=== PATIENT | male | born 1965 | race Caucasian/White ===

== ENCOUNTER 2017-05-26 06:25 | Day surgery (SDC) | payer OTHER ==
[~2017-05-26] VITALS: Ht 172.7 cm; Wt 131.5 kg
[~2017-05-26 06:25] MED LIST: ASPIR-LOW81 MG PO; CALCIUM-MAGNES1 EA10 PO; CALCIUM/MAGN1 TABLE2 PO; CYCLOBENZAPRINE10 MG PO; GLUCOPHAGE XR,500 MG PO; HYDROCODON-ACE1 EAC8 PO; MEN'S MULTI-VI1 EACH PO; MOBIC15 MG PO; OMEPRAZOLE40 M1 PO; TOPROL XL25 MG PO; ZESTRIL20 MG PO
[2017-05-26 06:45] VITALS: BP 139/79
[2017-05-26 07:53] LABS: POINT-OF-CARE METER ID UU14174212
[2017-05-26 12:24] LABS: POINT-OF-CARE METER ID UU13113675
[2017-05-26 14:18] LABS: POINT-OF-CARE METER ID UU13113675
[2017-05-26 16:39] VITALS: BP 138/83
[2017-05-26 17:09] LABS: POINT-OF-CARE METER ID UU14208753
[2017-05-26 19:57] VITALS: BP 115/63
[2017-05-26 21:24] LABS: POINT-OF-CARE METER ID UU14117124
[2017-05-26 23:09] VITALS: BP 111/67
[2017-05-27 04:54] VITALS: BP 115/67
[2017-05-27 06:32] LABS: POINT-OF-CARE METER ID UU14188577
[2017-05-27 08:04] VITALS: BP 121/70
[2017-05-27] MEDS ORDERED: BACLOFEN10 MG PO (08:30)
[2017-05-27] MEDS ORDERED: HYDROCODON-ACE1 EAC7 PO (08:30)
== END 2017-05-27 10:08 | disposition home or self-care (01) ==
LOC: SDC 06:25 → ENRESERV 12:42 → 2SOUTH 12:56 → SDC 14:33 → ENRESERV 15:40 → 3EAST 16:22
PROVIDERS: Neurological Surgery
DX: M47.14 Other spondylosis with myelopathy, thoracic region (principal); M48.04 Spinal stenosis, thoracic region; G95.20 Unspecified cord compression; M48.8X4 Other specified spondylopathies, thoracic region; I10 Essential (primary) hypertension; Z88.0 Allergy status to penicillin
CPT/HCPCS: 72020; 76000; 82948; 94660; G0378; J0330; J1100; J1170; J2405; J2710; J3010; J3480; J7120; S0020